=== PATIENT | female | born 2000 | race Caucasian/White ===

== ENCOUNTER → 2021-01-29 | Outpatient (CLI) | payer OTHER | LOC: COL.RAD 07:30 | DX: N94.6 Dysmenorrhea, unspecified (principal); N93.9 Abnormal uterine and vaginal bleeding, unspecified ==

== ENCOUNTER 2022-04-12 05:35 | Day surgery (SDC) | payer OTHER ==
[~2022-04-12] VITALS: Ht 165.1 cm; Wt 100.4 kg
[2022-04-12 06:05] VITALS: BP 122/63; PULSE 81; TEMP 98.7
[2022-04-12] MEDS ORDERED: FOCALIN XR15 MG PO (06:19)
[2022-04-12] MEDS ORDERED: AVIANE 0.02 MG-1 TAB PO (06:19)
[2022-04-12] MEDS ORDERED: ZOLOFT 100MG100 MG PO (06:20)
[2022-04-12] MEDS ORDERED: DESYREL 50MG50 MG PO (06:20)
[2022-04-12] MEDS ORDERED: SINGULAIR 110 MG/TAB PO (06:20)
[2022-04-12] MEDS ORDERED: ZYRTEC 10MG10 MG PO (06:21)
[2022-04-12] MEDS ORDERED: PROVENTIL0.09 MG/A1 IH (06:22)
[2022-04-12 09:00] VITALS: BP 116/49; PULSE 63; TEMP 97.1
--- NOTE | 2022-04-12 09:00 | NUR ---
The patient arrived back to [facility] from the recovery room at this time. The patient appears drowsy but arouses easily to her name. The patient reports minimal pain at this time. The patient was given some ice water to try at this time. Call light is within reach. The patient has 2 bandaids to her abdomen that appear clean, dry and intact. The patient has a pair of mesh underwear and a peripad in place at this time. Warm blanket provided. Denies any further needs.
[2022-04-12 09:15] VITALS: BP 113/54; PULSE 67
--- NOTE | 2022-04-12 09:15 | NUR ---
The patient appears to be tolerating the water well. She attempted to try a breakfast sandwhich her mother brought her but her mouth was too dry. Vital signs appear stable. Call light remains within reach. Mother at beside.
[2022-04-12 09:30] VITALS: BP 113/57; PULSE 64
--- NOTE | 2022-04-12 09:30 | NUR ---
The patient agrees to try some vanilla pudding at this time. The patient's vital signs appear stable. She continues to report pain in her right lower quadrant. The nurse instructed the patient that if she is able to tolerate her pudding that she will be given an oral pain medication. She verbalized understanding.
[2022-04-12 09:45] VITALS: BP 101/49; PULSE 63
--- NOTE | 2022-04-12 09:45 | NUR ---
The patient was given a PRN dose of Roxicodone 5 mg at this time. She also verbalizes a desire to use the bathroom and ambulated there with the stand by assistance of one nurse and appeared to tolerate the activity well. The nurse instructed the patient that if she is able to void and wants to go home to get dressed and notify the staff when she is ready to review her discharge instructions.
--- NOTE | 2022-04-12 10:10 | NUR ---
Discharge instructions were reviewed with the patient and her mother at this time. They both verbalized understanding and questions were answered at this time. The patient's IV to her left hand was removed and a pressure dressing was applied to the site. The patient is dressed and ready to be escorted out.
--- NOTE | 2022-04-12 10:20 | NUR ---
The patient was escorted out via wheelchair to a private vehicle by DAISY Chadwick. The patient's belongings and discharge paperwork were sent with her. The patient's mother is present to drive her home.
== END 2022-04-12 10:20 | disposition home or self-care (01) ==
LOC: SDCO 05:35
DX: N94.6 Dysmenorrhea, unspecified (principal)
CPT/HCPCS: J1100; J1170; J1885; J2405; J2704; J2710; J3010; J7120